=== PATIENT | female | born 1945 | race Caucasian/White ===

== ENCOUNTER 2016-09-11 12:03 | Day surgery (SDC) | payer MEDICARE, BC ==
[~2016-09-11 12:03] MED LIST: LIDOCAINE 2% MDV (20MG/ML) 20ML VIAL IV ONE; PROPOFOL 10 MG/ML VIAL IV ONE
--- NOTE | 2016-09-15 10:50 | Operative Note ---
DATE OF SURGERY: 09/11/2016 REFERRING PHYSICIAN: Dr. Paula Mcgee PREOPERATIVE DIAGNOSIS: Colon cancer screening. POSTOPERATIVE DIAGNOSES: 1. Rectal polyps x 3 status post cold forcep removal. 2. Chronic diverticulosis. PREPARATION QUALITY: Good. Estimated Blood Loss: Minimal. SPECIMENS: Include rectal polyps x 3. OPERATION: Colonoscopy with cold forcep polypectomy x 3. PROCEDURE: After informed consent was obtained from the patient, she was placed in left lateral decubitus position in the Endoscopy Suite, sedated and monitored by Department of Anesthesia. Digital rectal exam revealed no palpable mass. A well-lubricated [id number] colonoscope was inserted into the rectum and advanced to the cecum. The ileocolonic valve and appendiceal orifice is identified. Preparation quality was good. The ileocecal valve itself was cannulated revealing a normal-appearing distal terminal ileus. The cecum was unremarkable. The ascending colon demonstrated a few small diverticula. No other abnormalities were noted. The transverse colon was unremarkable. The descending colon and sigmoid colon demonstrated scattered small diverticula. No polyps or inflammation was seen. The rectum was unremarkable in forward views and J-turn views, other than 3 diminutive polyps all removed with a cold forceps with minimal bleeding noted. The rectal ampulla was deflated. The endoscope was removed. RECOMMENDATIONS: The patient should resume her medications and diet. I would recommend a high-fiber diet and a fiber supplement such as Citrucel or Benefiber. She will require repeat colonoscopy in 5-10 years pending tissue results. As always, thank you for allowing me to participate in the care of your patient. Craig Bass DO CC: Dr. Paula Mcgee [facility]
== END 2016-09-11 14:26 | disposition home or self-care (01) ==
LOC: HOP 12:03
PROVIDERS: ATTEND Internal Medicine Gastroenterology
DX: Z12.11 Encounter for screening for malignant neoplasm of colon (principal); D12.8 Benign neoplasm of rectum; K62.1 Rectal polyp; I10 Essential (primary) hypertension

== ENCOUNTER 2016-10-05 16:57 | Emergency (ER) | payer MEDICARE, BC ==
[2016-10-05] MEDS ORDERED: IPRATROPIUM/ALBUTEROL (0.5MG/3MG) NEB INH ONE (18:05)
--- NOTE | 2016-10-05 18:09 | Emergency Department Record ---
History of Present Illness - General Chief Complaint: Cough Stated Complaint: CHEST CONGESTION,COUGH Time Seen by Provider: 10/05/16 18:01 Source: Patient Mode of Arrival: Ambulatory Limitations: No limitations - History of Present Illness Initial Comments: 71 yo female presents to ED with a CC of cough and "feeling like my lungs are full". Patient reports similar symptoms with Pneumonia in 1968. Patient denies fever or chills, reports mild nausea without vomiting or change in stools. Patient denies previous heart or lung problems. MD Complaint: Cough Onset/Timin -: Days(s) Severity: Moderate Quality: Aching Consistency: Constant Improves With: Nothing Worsens With: Deep breaths Context: Sick contacts Associated Symptoms: Nausea Treatments Prior to Arrival: None - Related Data Home Medications Medication Instructions Recorded Confirmed Last Taken Amitriptyline HCl [Amitriptyline 50 mg PO DAILY 02/15/14 10/05/16 10/05/16 HCl] Atenolol/Chlorthalidone 1 tab PO DAILY 02/15/14 10/05/16 10/05/16 [Atenolol-Chlorthal 50-25 Tb] Celecoxib [Celebrex] 100 mg PO DAILY 02/15/14 10/05/16 10/05/16 Chlorthalidone [Chlorthalidone] 25 mg PO DAILY 02/15/14 10/05/16 10/05/16 Estradiol [Estrace] 1 mg PO DAILY 02/15/14 10/05/16 10/05/16 Metoprolol Tartrate [Metoprolol 25 mg PO DAILY 02/15/14 10/05/16 10/05/16 Tartrate] Tramadol HCl [Tramadol HCl] 50 mg PO ASDIR 02/15/14 10/05/16 10/05/16 Venlafaxine HCl [Effexor Xr] 75 mg PO DAILY 02/15/14 10/05/16 10/05/16 Previous Rx's Medication Instructions Recorded Ondansetron [Zofran Odt] 4 mg PO QID #12 tab.rapdis 02/10/15 Albuterol Sulfate [Proair Hfa] 1 - 2 puff IH .EVERY 4-6 HOURS PRN 10/05/16 #1 inhaler Moxifloxacin HCl [Avelox] 400 mg PO DAILY #7 tablet 10/05/16 Prednisone [Prednisone 20Mg] 20 mg PO TID #15 tab 10/05/16 Allergies Allergy/AdvReac Type Severity Reaction Status Date / Time ezetimibe [From Zetia] Allergy Severe SHORTNESS Verified 10/05/16 17:36 OF BREATH Macrolide Antibiotics Allergy Severe SHORTNESS Verified 10/05/16 17:36 OF BREATH amoxicillin Allergy Intermediate "MARIN MY Verified 10/05/16 17:36 MUCOUS MEMBRANES" azithromycin [From Zithromax] Allergy Intermediate "marin my Verified 10/05/16 17:36 mucous membranes" Cephalosporins Allergy Intermediate SKIN Verified 10/05/16 17:36 IRRITATION tetracycline Allergy Intermediate "MARIN MY Verified 10/05/16 17:36 MUCOUS MEMBRANES" codeine Allergy Mild HEADACHE Verified 10/05/16 17:36 acetaminophen [From Vicodin] Allergy Unknown PT UNSURE Verified 10/05/16 17:36 OF REACTION hydrocodone bitartrate Allergy Unknown PT UNSURE Verified 10/05/16 17:36 [From Vicodin] OF REACTION oxycodone HCl [From Percocet] Allergy Unknown PT UNSURE Verified 10/05/16 17:36 OF REACTION atorvastatin calcium AdvReac Mild MUSCLE PAIN Verified 10/05/16 17:36 [From Lipitor] gabapentin [From Neurontin] AdvReac Mild lethargic Verified 10/05/16 17:36 diazepam [From Valium] AdvReac Unknown unknown Verified 10/05/16 17:36 fentanyl AdvReac Unknown unknown Verified 10/05/16 17:36 pentazocine lactate AdvReac Unknown unknown Verified 10/05/16 17:36 [From Talwin] propoxyphene napsylate AdvReac Unknown unknown Verified 10/05/16 17:36 [From Darvocet-N] Travel Screening - Travel/Exposure Within Last 30 Days Have you traveled within the last 30 days?: No - Travel/Exposure Within Last Year Have you traveled outside the [place] in the last year?: No - Additonal Travel Details Have you been exposed to anyone with a communicable illness?: No - Travel Symptoms Symptom Screening: None Review of Systems Constitutional: Reports: Malaise. Denies: Chills, Fever, Night sweats Eyes: Denies: Eye discharge, Eye pain ENT: Reports: Congestion. Denies: Ear pain, Epistaxis Respiratory: Reports: Cough, Dyspnea, Wheezes. Denies: Hemoptysis Cardiovascular: Denies: Chest pain, Dyspnea on exertion, Palpitations Endocrine: Reports: Fatigue. Denies: Heat or cold intolerance, Polydipsia, Polyuria Gastrointestinal: Reports: Nausea. Denies: Abdominal pain, Vomiting Genitourinary: Denies: Dysuria, Frequency, Hematuria, Incontinence Musculoskeletal: Denies: Arthralgia, Back pain Skin: Denies: Bruising, Change in color Neurological: Denies: Abnormal gait, Confusion, Headache Psychiatric: Denies: Anxiety Hematological/Lymphatic: Denies: Anemia, Blood Clots Past Medical History - SOCIAL HISTORY Smoking Status: Never smoker Alcohol Use: None Drug Use: None - RESPIRATORY Hx Respiratory Disorders: Yes Hx Pneumonia: Yes (in 20's) Hx Sleep Apnea: Yes (?) Hx of CPAP: No - CARDIOVASCULAR Hx Cardio Disorders: Yes Hx Hypertension: Yes Comment:: high cholesterol-allergy to statins - NEURO Hx Neuro Disorders: Yes Hx Neuropathy: Yes (BLE) Hx Weakness: Yes (RLE > LLE (r/t back sx)) Comment:: R-drop foot r/t back sx uses a cane & walker - GI Hx GI Disorders: Yes Hx Abdominal Pain: Yes (RLQ) Hx Hepatitis/Jaundice: Yes (as a teen unsure what kind) Comment:: "bowel blockage" 2007 & 2008 - Hx Genitourinary Disorders: Yes Hx Kidney Stones: Yes (2004, 2007, 2015) - ENDOCRINE Hx Endocrine Disorders: Yes Hx Diabetes: No Hx Thyroid Disease: Yes (nodules no meds) - MUSCULOSKELETAL Hx Musculoskeletal Disorders: Yes Hx Arthritis: Yes Hx Fibromyalgia: Yes - PSYCH Hx Psych Problems: Yes Hx Anxiety: Yes Hx Depression: Yes - HEMATOLOGY/ONCOLOGY Hx Hematology/Oncology Disorders: No Family Medical History Any Significant Family History?: Yes Hx Cancer: Grandparents Hx Diabetes: Grandparents Hx HTN: Grandparents Physical Exam - General General Appearance: Alert, Oriented x3, Cooperative, Mild distress Limitations: No limitations - Head Head exam: Atraumatic, Normocephalic, Normal inspection Head exam detail: negative: Abrasion, Contusion, Chowdhury's sign, General tenderness, Hematoma, Laceration - Eye Eye exam: Normal appearance. negative: Conjunctival injection, Periorbital swelling, Periorbital tenderness, Scleral icterus - ENT Ear exam: negative: Auricular hematoma, Auricular trauma Nasal Exam: negative: Active bleeding, Discharge, Dried blood, Foreign body, Sinus tenderness Mouth exam: negative: Drooling, Laceration, Muffled voice, Tongue elevation - Neck Neck exam: Normal inspection. negative: Meningismus, Tenderness - Respiratory Respiratory exam: Normal lung sounds bilaterally. negative: Respiratory distress, Rhonchi, Stridor, Wheezes - Cardiovascular Cardiovascular Exam: Regular rate, Normal rhythm, Normal heart sounds - GI/Abdominal GI/Abdominal exam: Soft. negative: Pulsatile mass, Rebound, Rigid, Tenderness - Rectal Rectal exam: Deferred - exam: Deferred - Extremities Extremities exam: Normal inspection. negative: Calf tenderness, Pedal edema, Tenderness - Back Back exam: Denies: CVA tenderness (R), CVA tenderness (L) - Neurological Neurological exam: Alert, Normal gait, Oriented X3 - Psychiatric Psychiatric exam: Normal affect, Normal mood - Skin Skin exam: Normal color. negative: Abrasion Type of lesion: negative: abrasion Course Vital Signs 10/05/16 10/05/16 17:38 18:04 Temperature 98.2 F 98.2 F Pulse Rate 66 66 Respiratory 185 H 18 Rate Blood Pressure 152/95 152/95 Pulse Ox 98 98 - Reevaluation(s) Reevaluation #1: 10/05/16 18:42 Labs reviewed, BNP 1170, otherwise labs are grossly unremarkable for an acute process. CXR: Nothing acute MDM: Labs and CXR reviewed, no evidence for pulmonary vascular congestion or pleural effusions on examinations, will treat symptomatically for her cough/bronchitis symptoms. Medical Decision Making - Lab Data Result diagrams: 10/05/16 18:15 10/05/16 18:15 Disposition Disposition: Discharge Clinical Impression: Bronchitis Disposition: Home, Self-Care Condition: (2) Stable Instructions: Acute Bronchitis (ED) Additional Instructions: Return to ED if your symptoms worsen or if you have any concerns. Zithromax, prednisone, and albuterol as directed. Follow-up with your family doctor in 3-5 days. Prescriptions: Moxifloxacin HCl [Avelox] 400 mg PO DAILY #7 tablet Prednisone [Prednisone 20Mg] 20 mg PO TID #15 tab Albuterol Sulfate [Proair Hfa] 1 - 2 puff IH .EVERY 4-6 HOURS PRN #1 inhaler PRN Reason: Difficulty In Breathing Forms: Patient Portal Access Time of Disposition: 18:47
[2016-10-05 18:20] LABS: HEMATOCRIT 43.4 % (35.0-47.0); MEAN CELL VOLUME 91.2 fl (81-97); MEAN CORPUSCULAR HEMOGLOBIN 29.4 pg (27-33); MEAN CORPUSCULAR HGB CONC 32.3 g/dl (32-36); MEAN PLATELET VOLUME 10.7 fl (7.4-10.4); PLATELET COUNT 161 K/uL (130-400); RED BLOOD COUNT 4.76 M/uL (3.80-5.40); RED CELL DISTRIBUTION WIDTH 12.5 % (11.5-14.5); WHITE BLOOD COUNT W/O DIFF 4.1 K/uL (4.2-12.2)
[2016-10-05 18:31] LABS: ALB/GLOB RATIO 1.3 (1.1-1.8); ANION GAP 10.6 (7-16); BILIRUBIN,TOTAL 0.36 mg/dL (0.2-1.3); CARBON DIOXIDE 30.4 mmol/L (22-30)
--- NOTE | 2016-10-09 14:59 | RADIOLOGY REPORT ---
EXAM: CHEST, TWO VIEWS HISTORY: COUGH AND DIFFICULTY BREATHING. TECHNIQUE: PA and lateral upright views of the chest were obtained. Comparison: 02/15/14 and 01/28/13. FINDINGS: The heart, mediastinum, and pulmonary vasculature are normal. The patient is rotated slightly to the left. This accentuates the right hilar and infrahilar lung markings. There is mild chronic elevation of the right hemidiaphragm. There are no acute infiltrates or effusions. There is no pneumothorax. Degenerative changes are present within the spine. There are no acute osseous abnormalities. IMPRESSION: NO ACUTE CHEST PATHOLOGY. JOB NUMBER: [id number] MTDD
== END 2016-10-05 19:02 | disposition home or self-care (01) ==
LOC: ER 16:57
DX: J20.9 Acute bronchitis, unspecified (principal); R11.0 Nausea
CPT/HCPCS: 71020; 80053; 83880; 85027; 94640; 99283; 99284

== ENCOUNTER 2017-08-23 13:57 | Observation (INO) | payer MEDICARE, BC ==
[2017-08-23] MEDS ORDERED: ONDANSETRON HCL IV 4 MG/2 ML VIAL IV ONE (14:05)
[2017-08-23] MEDS ORDERED: 0.9 % SODIUM CHLORIDE 1,000 ML BAG IV ONE (14:05)
--- NOTE | 2017-08-23 14:12 | Emergency Department Record ---
History of Present Illness - General Chief complaint: Weakness Stated complaint: WEAKNESS Time Seen by Provider: 08/23/17 14:05 Source: Patient, Family Mode of Arrival: Ambulatory Limitations: No limitations - History of Present Illness Initial comments: 71 yo female presents with nausea, poor appetite, weakness, tremors, nausea, vomiting and diarrhea. The onset of the symptoms was Thursday. She developed the nausea, vomiting and loose stools at that time. She reports she has had very little to eat since that time. She has been alone during that time period. She asked her home health aide and family to stay away as to not get them sick. No cough or sore throat. MD Complaint: Generalized weakness -: Days(s) (6) Location: Generalized Severity: Moderate Quality: Aching Consistency: Constant Improves with: None Worsens with: Other (eating) Associated Symptoms: Dark stools, Loss of appetite, Nausea/vomiting - [place] Coma Scale Eye Response: (4) Open spontaneously Motor Response: (6) Obeys commands Verbal Response: (5) Oriented Ronel Total: 15 - Related Data Home Medications Medication Instructions Recorded Confirmed Last Taken Trazodone HCl 50 mg PO QHS 08/23/17 08/23/17 Unknown Previous Rx's Medication Instructions Recorded Ondansetron [Zofran Odt] 4 mg PO QID #12 tab.rapdis 02/10/15 Albuterol Sulfate [Proair Hfa] 1 - 2 puff IH .EVERY 4-6 HOURS PRN 10/05/16 #1 inhaler Prednisone [Prednisone 20Mg] 20 mg PO TID #15 tab 10/05/16 Allergies Allergy/AdvReac Type Severity Reaction Status Date / Time ezetimibe [From Zetia] Allergy Severe SHORTNESS Verified 08/23/17 15:51 OF BREATH Macrolide Antibiotics Allergy Severe SHORTNESS Verified 08/23/17 15:51 OF BREATH amoxicillin Allergy Intermediate "MARIN MY Verified 08/23/17 15:51 MUCOUS MEMBRANES" azithromycin [From Zithromax] Allergy Intermediate "marin my Verified 08/23/17 15:51 mucous membranes" Cephalosporins Allergy Intermediate SKIN Verified 08/23/17 15:51 IRRITATION tetracycline Allergy Intermediate "MARIN MY Verified 08/23/17 15:51 MUCOUS MEMBRANES" codeine Allergy Mild HEADACHE Verified 08/23/17 15:51 acetaminophen [From Vicodin] Allergy Unknown PT UNSURE Verified 08/23/17 15:51 OF REACTION hydrocodone bitartrate Allergy Unknown PT UNSURE Verified 08/23/17 15:51 [From Vicodin] OF REACTION oxycodone HCl [From Percocet] Allergy Unknown PT UNSURE Verified 08/23/17 15:51 OF REACTION atorvastatin calcium AdvReac Mild MUSCLE PAIN Verified 08/23/17 15:51 [From Lipitor] gabapentin [From Neurontin] AdvReac Mild lethargic Verified 08/23/17 15:51 diazepam [From Valium] AdvReac Unknown unknown Verified 08/23/17 15:51 fentanyl AdvReac Unknown unknown Verified 08/23/17 15:51 pentazocine lactate AdvReac Unknown unknown Verified 08/23/17 15:51 [From Talwin] propoxyphene napsylate AdvReac Unknown unknown Verified 08/23/17 15:51 [From Darvocet-N] Review of Systems Constitutional: Reports: Malaise, Weakness. Denies: Chills, Fever Eyes: Denies: Eye discharge, Eye pain, Photophobia, Vision change ENT: Denies: Congestion, Throat pain Respiratory: Denies: Cough, Dyspnea, Hemoptysis, Stridor, Wheezes Cardiovascular: Denies: Chest pain, Palpitations, Syncope Endocrine: Reports: Fatigue. Denies: Polydipsia, Polyuria Gastrointestinal: Reports: Abdominal pain, Diarrhea, Nausea, Vomiting. Denies: Constipation, Hematemesis, Hematochezia, Melena Genitourinary: Denies: Dysuria, Urgency Musculoskeletal: Denies: Arthralgia, Back pain, Joint swelling, Myalgia Skin: Denies: Bruising, Change in color, Lesions, Rash Neurological: Reports: Weakness. Denies: Headache, Numbness, Tingling, Tremors , Vertigo Psychiatric: Denies: Anxiety Hematological/Lymphatic: Denies: Blood Clots, Easy bleeding, Easy bruising, Swollen glands Past Medical History - SOCIAL HISTORY Smoking Status: Never smoker Drug Use: None - RESPIRATORY Hx Respiratory Disorders: Yes Hx Pneumonia: Yes (in 20's) Hx Sleep Apnea: Yes (?) Hx of CPAP: No - CARDIOVASCULAR Hx Cardio Disorders: Yes Hx Hypertension: Yes Comment:: high cholesterol-allergy to statins - NEURO Hx Neuro Disorders: Yes Hx Neuropathy: Yes (BLE) Hx Weakness: Yes (RLE > LLE (r/t back sx)) Comment:: R-drop foot r/t back sx uses a cane & walker - GI Hx GI Disorders: Yes Hx Abdominal Pain: Yes (RLQ) Hx Hepatitis/Jaundice: Yes (as a teen unsure what kind) Comment:: "bowel blockage" 2007 & 2008 - Hx Genitourinary Disorders: Yes Hx Kidney Stones: Yes (2004, 2007, 2015) - ENDOCRINE Hx Endocrine Disorders: Yes Hx Diabetes: No Hx Thyroid Disease: Yes (nodules no meds) - MUSCULOSKELETAL Hx Musculoskeletal Disorders: Yes Hx Arthritis: Yes Hx Fibromyalgia: Yes - PSYCH Hx Psych Problems: Yes Hx Anxiety: Yes Hx Depression: Yes - HEMATOLOGY/ONCOLOGY Hx Hematology/Oncology Disorders: No Family Medical History Hx Cancer: Grandparents Hx Diabetes: Grandparents Hx HTN: Grandparents Physical Exam - General General Appearance: Alert, Oriented x3, Cooperative, No acute distress, Other ( Appears weak) Limitations: No limitations - Head Head exam: Atraumatic, Normocephalic, Normal inspection - Eye Eye exam: Normal appearance, PERRL. negative: Conjunctival injection, Periorbital swelling, Scleral icterus - ENT ENT exam: Normal exam, Mucous membranes dry Ear exam: Normal external inspection Nasal Exam: Normal inspection Mouth exam: Normal external inspection Teeth exam: Normal inspection Throat exam: Normal inspection. negative: Tonsillar erythema, Tonsillar exudate - Neck Neck exam: Normal inspection, Full ROM. negative: Tenderness - Respiratory Respiratory exam: Normal lung sounds bilaterally. negative: Respiratory distress - Cardiovascular Cardiovascular Exam: Regular rate, Normal rhythm, Normal heart sounds - GI/Abdominal GI/Abdominal exam: Soft. negative: Distended, Guarding, Rebound, Rigid, Tenderness - Rectal Rectal exam: Deferred - exam: Deferred - Extremities Extremities exam: Normal inspection, Full ROM, Normal capillary refill. negative: Pedal edema, Tenderness - Back Back exam: Reports: Normal inspection, Full ROM. Denies: CVA tenderness (R), CVA tenderness (L), Muscle spasm, Rash noted, Tenderness - Neurological Neurological exam: Alert, Normal gait, Oriented X3 - Psychiatric Psychiatric exam: Normal affect, Normal mood Course - Reevaluation(s) Reevaluation #1: 08/23/17 16:11 The labs were reviewed No acute changes in the CBC The CMP with increased BUN of 27 with CR of 1.1 The K is 3.3 No acute changes of the LFT's 08/23/17 17:39 The UA was reviewed No acute changes The CT scan of the abdomen was negative for acute process. She has fatty liver , intra renal stones, diverticulosis without diverticulitis, L2L3 degenertive disc disease, degenerative arthritis. Given the dehydration, weakness, nausea, vomiting and diarrhea I recommend admission for supportive treatment until able to tolerate PO I SW Mar Capellan for the admission. Medical Decision Making - Lab Data Result diagrams: 08/23/17 13:49 08/23/17 13:49 Disposition Disposition: Admit Clinical Impression: Dehydration, Vomiting and diarrhea, Weakness, Hypokalemia Abdominal pain Qualifiers: Abdominal location: unspecified location Qualified Code(s): R10.9 - Unspecified abdominal pain Disposition: Still a Patient at [facility] Decision to Admit: Admit from ER Decision to Admit Date: 08/23/17 Decision to Admit Time: 17:43 Condition: (2) Stable Forms: Patient Portal Access Time of Disposition: 17:43 Quality - Quality Measures Quality Measures: N/A - Blood Pressure Screening Does Patient Have Any of the Following: No Blood Pressure Classification: Hypertensive Reading Systolic Measurement: 163 Diastolic Measurement: 111 Screening for High Blood Pressure: < Pre-Hypertensive BP, F/U Documented > [ [id number]] Pre-Hypertensive Follow-up Interventions: Referral to alternative/primary care provider.
[2017-08-23 14:28] LABS: HEMATOCRIT 53.7 % (35.0-47.0); HEMOGLOBIN 17.8 gm/dl (11.6-16.0); MEAN CELL VOLUME 87.6 fl (81-97); MEAN CORPUSCULAR HGB CONC 33.1 g/dl (32-36); MEAN PLATELET VOLUME 10.9 fl (7.4-10.4); PLATELET COUNT 273 K/uL (130-400); RED BLOOD COUNT 6.13 M/uL (3.80-5.40); RED CELL DISTRIBUTION WIDTH 13.1 % (11.5-14.5)
[2017-08-23 14:42] LABS: BILIRUBIN,TOTAL 0.8 mg/dL (0.2-1.0); CREATININE 1.1 mg/dL (0.5-0.9); TOTAL PROTEIN 8.4 g/dL (6.6-8.7)
[2017-08-23 14:47] LABS: ALB/GLOB RATIO 1.3 (1.1-1.8); ALBUMIN 4.8 g/dL (4.0-5.0)
[2017-08-23 14:51] LABS: PLATELET ESTIMATE NORMAL (NORMAL)
[2017-08-23 15:15] LABS: THYROID STIMULATING HORMONE 4.26 uIU/mL (0.270-4.20)
[2017-08-23] MEDS ORDERED: ONDANSETRON HCL IV 4 MG/2 ML VIAL IVP ONE (15:32)
[2017-08-23] MEDS ORDERED: 0.9 % SODIUM CHLORIDE 1000ML 1,000 ML IV ONE (16:27)
[2017-08-23 17:15] LABS: URINE APPEARANCE CLEAR; URINE BILIRUBIN NEGATIVE (NEGATIVE); URINE BLOOD TRACE-I (NEGATIVE); URINE COLOR YELLOW; URINE GLUCOSE (UA) NEGATIVE (NEGATIVE); URINE KETONE 15 mg/dL (NEGATIVE); URINE LEUKOCYTE ESTERASE NEGATIVE (NEGATIVE); URINE NITRITE NEGATIVE (NEGATIVE); URINE PROTEIN NEGATIVE (NEGATIVE); URINE UROBILINOGEN 0.2 E.U./dL (0.20 - 1.00)
[2017-08-23 17:30] LABS: URINE EPITHELIAL CELLS 0 - 2 (FEW); URINE RBC 0 - 2 (NONE SEEN); URINE WBC 0 - 2 (0-2/hpf)
[2017-08-23] MEDS ORDERED: POTASSIUM CHLORIDE/D5-0.9%NACL 20 MEQ/1,000 ML BAG IV ONE (19:43)
[2017-08-23] MEDS ORDERED: ONDANSETRON HCL IV 4 MG/2 ML VIAL IVP PRN (19:43)
[2017-08-23] MEDS ORDERED: TRAZODONE 50 MG TABLET PO SCH (22:00)
[2017-08-23] MEDS ORDERED: AMITRIPTYLINE 25 MG TABLET PO SCH (22:00)
[2017-08-23] MEDS: PREDNISONE 20 MG TAB PO SCH (22:02)
[2017-08-24 06:56] LABS: BASO % 0.6 % (0-6); GRAN % 74.4 % (47-80); HEMATOCRIT 42.1 % (35.0-47.0); HEMOGLOBIN 13.6 gm/dl (11.6-16.0); LYMPH % 19.4 % (16-45); MEAN CELL VOLUME 90.7 fl (81-97); MEAN CORPUSCULAR HEMOGLOBIN 29.3 pg (27-33); MEAN CORPUSCULAR HGB CONC 32.3 g/dl (32-36); MEAN PLATELET VOLUME 10.6 fl (7.4-10.4); MONO % 5.6 % (0-9); PLATELET COUNT 193 K/uL (130-400); RED BLOOD COUNT 4.64 M/uL (3.80-5.40); RED CELL DISTRIBUTION WIDTH 12.8 % (11.5-14.5); WHITE BLOOD COUNT W/O DIFF 3.4 K/uL (4.2-12.2)
[2017-08-24 07:36] LABS: ALB/GLOB RATIO 1.4 (1.1-1.8); ALBUMIN 3.5 g/dL (4.0-5.0); ALKALINE PHOSPHATASE 54 U/L (35-104); ALT/SGPT 24 U/L (<33); AST/SGOT 27 U/L (10.0-35.0); BLOOD UREA NITROGEN 17 mg/dL (8-23); CREATININE 0.9 mg/dL (0.5-0.9); EST GLOMERULAR FILTRATION RATE > 60 mL/min; GLUCOSE,RANDOM 174 mg/dL (74-109); LIPASE 27 U/L (13-60)
--- NOTE | 2017-08-24 07:39 | CT SCAN REPORT ---
EXAM: CT OF THE ABDOMEN AND PELVIS HISTORY: VOMITING AND DIARRHEA. BLOOD IN THE STOOL. TECHNIQUE: CT of the abdomen and pelvis was performed without intravenous or oral contrast. Comparison: CT of the abdomen and pelvis 02/10/15. FINDINGS: Minor scarring at the lung bases. The lung bases otherwise are unremarkable. There are coronary artery calcifications present. There is diffuse fatty infiltration of the liver. No hepatic mass identified. The spleen is unremarkable. No pancreatic mass or inflammatory change. The bile ducts are not dilated. The gallbladder is surgically absent. No adrenal lesion seen. There is no aortic aneurysm. No periaortic mass or adenopathy. Atherosclerotic changes are again seen in the abdominal aorta. Two tiny nonobstructing calculi are seen in the right kidney which are stable. No other renal calculi. No ureteral calculus or hydronephrosis. There are no dilated bowel loops. No pelvic mass, abscess, or adenopathy. No free air or free fluid. There is diverticulosis without CT evidence for diverticulitis. The uterus is surgically absent. Extensive post surgical changes are present in the lumbar spine. These appear similar to the patient's previous examination. There is severe narrowing with some irregularity of the vertebral end plates now identified at the L2-L3 level which has progressed since the previous study. Severe arthritic changes are present in the right hip which are progressed from the previous study with mild arthritic change in the left hip. IMPRESSION: 1. NO ACUTE ABDOMINAL OR PELVIC PROCESS IDENTIFIED. 2. DIVERTICULOSIS WITHOUT CT EVIDENCE FOR DIVERTICULITIS. 3. PRIOR CHOLECYSTECTOMY AND HYSTERECTOMY. 4. DIFFUSE FATTY INFILTRATION OF THE LIVER. 5. POST SURGICAL CHANGES IN THE LUMBAR SPINE. 6. SEVERE NARROWING OF THE DISK SPACE AT L2-L3 WHICH HAS PROGRESSED SINCE THE PREVIOUS STUDY WITH IRREGULARITY OF THE VERTEBRAL END PLATES. THIS MAY JUST REPRESENT WORSENING ARTHRITIC CHANGE. IF THERE IS CLINICAL CONCERN FOR DISKITIS OR INFECTION MRI COULD BE OBTAINED. 7. SEVERE ARTHRITIC CHANGES IN THE RIGHT HIP WHICH ARE PROGRESSED FROM THE PREVIOUS EXAMINATION. JOB NUMBER: [id number] [facility]
[2017-08-24] MEDS: PREDNISONE 20 MG TAB PO SCH (09:59)
[2017-08-24] MEDS ORDERED: ATENOLOL 50 MG TABLET PO SCH (10:00)
[2017-08-24] MEDS ORDERED: ESTRADIOL 1 MG PO SCH (10:00)
[2017-08-24] MEDS ORDERED: PANTOPRAZOLE SODIUM IV 40 MG VIAL IV SCH (10:00)
[2017-08-24] MEDS ORDERED: CHLORTHALIDONE 25 MG TABLET PO SCH (10:00)
--- NOTE | 2017-08-24 11:14 | History & Physical ---
History of Present Illness - Date of Service Date of Service for History & Physical: 08/24/17 - History of Present Illness Admitting Diagnosis: vomting, diarrhea, dehydration History of Present Illness: 71yo female with CC of nausea/vomiting and diarrhea. 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 She presented to ED with nausea, poor appetite, weakness, tremors, nausea, vomiting and diarrhea. The onset of the symptoms was Thursday. She developed the nausea, vomiting and loose stools at that time. She reports she has had very little to eat since that time. She has been alone during that time period. She asked her home health aide and family to stay away as to not get them sick. No cough or sore throat. Her daughter decided to bring her to the ED. While in the ED, patient had BP of 163/111 with HR of 109, she was afebrile. WBC count was normal. She had some electrolyte abnormalities. potassium was low at 3.3, chloride low at 92 AG elevated at 22. BUN and Cr elevated 27/1.1 respectively. Urine was negative for infection but did have trace ketones. She received bolus of NS and BP and HR improved to 134/85 and 86. She received antiemetics and was able to control vomiting. She reported some lower cramping abdominal pain and underwent CT scan which was negative for an acute intraabdominal process. She was admitted for dehydration. 08/24/17- Patient states she is feeling better today. She has had no further episodes of vomiting since arrival. She has felt nauseous at times but says the zofran is helping. She did have 2 loose stools today but says that has slowed down as well compared to earlier this week. She continues to have some mild cramping in the lower abdomen but no other pain. She is tolerating clear liquid diet well. She has been up to the bathroom several times today independently. pcp: Dr. Mcgee Travel Screening - Travel/Exposure Within Last 30 Days Have you traveled within the last 30 days?: No - Travel/Exposure Within Last Year Have you traveled outside the [place] in the last year?: No - Additonal Travel Details Have you been exposed to anyone with a communicable illness?: No - Travel Symptoms Symptom Screening: None Review of Systems Constitutional: Denies: Chills, Fever, Malaise, Weakness Eyes: Denies: Eye discharge, Eye pain, Photophobia, Vision change ENT: Denies: Congestion, Throat pain Respiratory: Denies: Cough, Dyspnea, Hemoptysis, Stridor, Wheezes Cardiovascular: Denies: Chest pain, Palpitations, Syncope Endocrine: Denies: Fatigue, Polydipsia, Polyuria Gastrointestinal: Reports: Abdominal pain, Diarrhea, Nausea, Vomiting. Denies: Constipation, Hematemesis, Hematochezia, Melena Genitourinary: Denies: Dysuria, Urgency Musculoskeletal: Denies: Arthralgia, Back pain, Joint swelling, Myalgia Skin: Denies: Bruising, Change in color, Lesions, Rash Neurological: Denies: Headache, Numbness, Tingling, Tremors, Vertigo, Weakness Psychiatric: Denies: Anxiety Hematological/Lymphatic: Denies: Blood Clots, Easy bleeding, Easy bruising, Swollen glands Past Medical History - SOCIAL HISTORY Smoking Status: Never smoker Alcohol Use: None Drug Use: None - RESPIRATORY Hx Respiratory Disorders: Yes Hx Pneumonia: Yes (in 20's) Hx Sleep Apnea: Yes (?) Hx of CPAP: No - CARDIOVASCULAR Hx Cardio Disorders: Yes Hx Hypertension: Yes Comment:: high cholesterol-allergy to statins - NEURO Hx Neuro Disorders: Yes Hx Neuropathy: Yes (BLE) Hx Weakness: Yes (RLE > LLE (r/t back sx)) Comment:: R-drop foot r/t back sx uses a cane & walker - GI Hx GI Disorders: Yes Hx Abdominal Pain: Yes (RLQ) Hx Hepatitis/Jaundice: Yes (as a teen unsure what kind) Comment:: "bowel blockage" 2007 & 2008 - Hx Genitourinary Disorders: Yes Hx Kidney Stones: Yes (2004, 2007, 2016) - ENDOCRINE Hx Endocrine Disorders: Yes Hx Diabetes: No Hx Thyroid Disease: Yes (nodules no meds) - MUSCULOSKELETAL Hx Musculoskeletal Disorders: Yes Hx Arthritis: Yes Hx Fibromyalgia: Yes - PSYCH Hx Psych Problems: Yes Hx Anxiety: Yes Hx Depression: Yes - HEMATOLOGY/ONCOLOGY Hx Hematology/Oncology Disorders: No Family Medical History Any Significant Family History?: No Hx Cancer: Grandparents Hx Diabetes: Grandparents Hx HTN: Grandparents H&P Meds/Allergies - Allergies Allergies: Allergies Allergy/AdvReac Type Severity Reaction Status Date / Time ezetimibe [From Zetia] Allergy Severe SHORTNESS Verified 08/23/17 15:51 OF BREATH Macrolide Antibiotics Allergy Severe SHORTNESS Verified 08/23/17 15:51 OF BREATH amoxicillin Allergy Intermediate "MARIN MY Verified 08/23/17 15:51 MUCOUS MEMBRANES" azithromycin [From Zithromax] Allergy Intermediate "marin my Verified 08/23/17 15:51 mucous membranes" Cephalosporins Allergy Intermediate SKIN Verified 08/23/17 15:51 IRRITATION tetracycline Allergy Intermediate "MARIN MY Verified 08/23/17 15:51 MUCOUS MEMBRANES" codeine Allergy Mild HEADACHE Verified 08/23/17 15:51 acetaminophen [From Vicodin] Allergy Unknown PT UNSURE Verified 08/23/17 15:51 OF REACTION hydrocodone bitartrate Allergy Unknown PT UNSURE Verified 08/23/17 15:51 [From Vicodin] OF REACTION oxycodone HCl [From Percocet] Allergy Unknown PT UNSURE Verified 08/23/17 15:51 OF REACTION atorvastatin calcium AdvReac Mild MUSCLE PAIN Verified 08/23/17 15:51 [From Lipitor] gabapentin [From Neurontin] AdvReac Mild lethargic Verified 08/23/17 15:51 diazepam [From Valium] AdvReac Unknown unknown Verified 08/23/17 15:51 fentanyl AdvReac Unknown unknown Verified 08/23/17 15:51 pentazocine lactate AdvReac Unknown unknown Verified 08/23/17 15:51 [From Talwin] propoxyphene napsylate AdvReac Unknown unknown Verified 08/23/17 15:51 [From Darvocet-N] - Home Medications Home Medications Medication Instructions Recorded Confirmed Last Taken Trazodone HCl 50 mg PO QHS 08/23/17 08/23/17 Unknown Previous Rx's Medication Instructions Recorded Ondansetron [Zofran Odt] 4 mg PO QID #12 tab.[email or web address] 02/10/15 Albuterol Sulfate [Proair Hfa] 1 - 2 puff IH .EVERY 4-6 HOURS PRN 10/05/16 #1 inhaler Omeprazole 40 mg PO DAILY #30 cap 08/24/17 Ondansetron [Zofran Odt] 4 mg PO Q8H PRN #20 tab.hans 01/08/18 - Active Medications Active Medications: Current Medications Amitriptyline HCl (Elavil) 50 mg PO QHS [facility] Last Admin: 08/23/17 22:02 Dose: 50 mg Atenolol (Tenormin) 50 mg PO DAILY [facility] Last Admin: 08/24/17 09:53 Dose: 50 mg Chlorthalidone (Chlorthalidone) 25 mg PO DAILY [facility] Last Admin: 08/24/17 09:53 Dose: 25 mg Non-Formulary Medication (Estradiol) 1 mg PO DAILY [facility] Last Admin: 08/24/17 10:03 Dose: Not Given Ondansetron HCl (Zofran) 4 mg IVP Q6H PRN PRN Reason: NAUSEA Pantoprazole Sodium (Protonix Iv) 40 mg IV DAILY [facility] Last Admin: 08/24/17 09:59 Dose: 40 mg Prednisone (Prednisone 20mg) 20 mg PO TID [facility] Last Admin: 08/24/17 09:59 Dose: Not Given Trazodone HCl (Desyrel) 50 mg PO QHS [facility] Last Admin: 08/23/17 22:02 Dose: 50 mg Physical Exam - Vital Signs Vital Signs: Vital Signs - Last 24 Hrs Temp Pulse Resp BP Pulse Ox 08/24/17 03:43 98.3 F 79 18 150/63 97 08/23/17 21:00 16 08/23/17 19:45 99.4 F 86 18 154/82 93 L - General General Appearance: Alert, Oriented x3, Cooperative, No acute distress (resting comfortably in bed. daughter at bedside) Limitations: No limitations - Head Head exam: Atraumatic, Normocephalic, Normal inspection - Eye Eye exam: Normal appearance, PERRL. negative: Conjunctival injection, Periorbital swelling, Scleral icterus - ENT ENT exam: Normal exam, Mucous membranes dry Ear exam: Normal external inspection Nasal Exam: Normal inspection Mouth exam: Normal external inspection Teeth exam: Normal inspection Throat exam: Normal inspection. negative: Tonsillar erythema, Tonsillar exudate - Neck Neck exam: Normal inspection, Full ROM. negative: Tenderness - Respiratory Respiratory exam: Normal lung sounds bilaterally. negative: Respiratory distress - Cardiovascular Cardiovascular Exam: Regular rate, Normal rhythm, Normal heart sounds - GI/Abdominal GI/Abdominal exam: Soft. negative: Distended, Guarding, Rebound, Rigid, Tenderness - Rectal Rectal exam: Deferred - exam: Deferred - Extremities Extremities exam: Normal inspection, Full ROM, Normal capillary refill. negative: Pedal edema, Tenderness - Back Back exam: Reports: Normal inspection, Full ROM. Denies: CVA tenderness (R), CVA tenderness (L), Muscle spasm, Rash noted, Tenderness - Neurological Neurological exam: Alert, Normal gait, Oriented X3 - Psychiatric Psychiatric exam: Normal affect, Normal mood Results - Labs Result Diagrams: 08/24/17 06:30 08/24/17 06:30 Labs Last 24 Hours: Laboratory Results - last 24 hr 08/24/17 08/24/17 06:30 06:30 WBC 3.4 L RBC 4.64 Hgb 13.6 Hct 42.1 MCV 90.7 MCH 29.3 MCHC 32.3 RDW 12.8 Plt Count 193 MPV 10.6 H Gran % 74.4 Lymphocytes % 19.4 Monocytes % 5.6 Eosinophils % 0.0 Basophils % 0.6 Sodium 143 Potassium 3.6 Chloride 106 Carbon Dioxide 25.0 Anion Gap 12.0 BUN 17 Creatinine 0.9 Estimated GFR > 60 Random Glucose 174 H Calcium 8.2 L Total Bilirubin 0.40 AST 27 ALT 24 Alkaline Phosphatase 54 Total Protein 6.0 L Albumin 3.5 L Globulin 2.5 Albumin/Globulin Ratio 1.4 Lipase 27 - Imaging and Cardiology CT scan - abdomen Status: Report reviewed (no acute intra abdominal process) VTE H&P Assessment - Risk for VTE Risk for VTE: Yes Risk Level: High Risk Assessment Date: 08/24/17 Risk Assessment Time: 13:00 VTE Orders Placed or Will Be Placed: Yes Plan - Detailed Diagnosis and Plan (1) Vomiting and diarrhea Status: Acute Base Code: R11.10 - VOMITING, UNSPECIFIED; R19.7 - DIARRHEA, UNSPECIFIED Comment: 08/24/17- improved. She has had no further epsiodes of vomiting since arrival. Zofran seemed to be helpful with her nausea. She states the loose stools have decreased in frequency. She denies any bloody or dark stools. UA negative for infection. No recent travel, sick contacts, antibiotic use. Diarrhea onset less than 7 days ago and is improving. Suspect this may be related to viral gastroenteritis. -continue zofran prn -hold celebrex and start protonix 40mg IV daily -vitals q8H -will recheck this afternoon. (2) Dehydration Status: Acute Base Code: E86.0 - DEHYDRATION Comment: 08/24/17- resolved. BUN and Cr improved from 27/1.1 egfr of 52 to 17/0.9 and >60. Blood pressure is 158/91 with HR of 67. she remains afebrile and is tolerating clear fluids. -continue clear liquid diet (3) Electrolyte abnormality Status: Acute Base Code: E87.8 - OTH DISORDERS OF ELECTROLYTE AND FLUID BALANCE, NEC Comment: 08/24/17- resolved. Potassium, chloride back in normal range and AG is down to 12. No further episodes of vomiting and loose stool has slowed down considerably per patient. (4) Full code status Status: Acute Base Code: Z78.9 - OTHER SPECIFIED HEALTH STATUS Comment: 08/24- patient is full code (5) DVT prophylaxis Status: Acute Base Code: [id number] - Comment: 08/24/17- Patient is high risk with age and restricted mobility. Will order lovenox 40mg sq daily if she is not discharged today
[2017-08-24] MEDS ORDERED: VENLAFAXINE ER 37.5 MG CAPSULE PO SCH (11:30)
[2017-08-24] MEDS ORDERED: CELECOXIB 100 MG CAPSULE PO SCH (11:45)
--- NOTE | 2017-08-24 16:34 | Discharge Summary ---
Providers Discharge Summary Date: 08/24/17 Date of admission: 08/23/17 19:24 Expected Date of Discharge: 08/24/17 Attending physician: Ananth Ambrose Primary care physician: PATRICE JOHNSON D.O. Physical Exam - Vital Signs Vital Signs: Vital Signs - Last 24 Hrs Temp Pulse Resp BP Pulse Ox 08/24/17 11:00 97.8 F 67 18 128/70 96 08/24/17 03:43 98.3 F 79 18 150/63 97 08/23/17 21:00 16 08/23/17 19:45 99.4 F 86 18 154/82 93 L - General General Appearance: Alert, Oriented x3, Cooperative, No acute distress Limitations: No limitations - Head Head exam: Atraumatic, Normocephalic, Normal inspection - Eye Eye exam: Normal appearance, PERRL. negative: Conjunctival injection, Periorbital swelling, Scleral icterus - ENT ENT exam: Normal exam, Mucous membranes dry Ear exam: Normal external inspection Nasal Exam: Normal inspection Mouth exam: Normal external inspection Teeth exam: Normal inspection Throat exam: Normal inspection. negative: Tonsillar erythema, Tonsillar exudate - Neck Neck exam: Normal inspection, Full ROM. negative: Tenderness - Respiratory Respiratory exam: Normal lung sounds bilaterally. negative: Respiratory distress - Cardiovascular Cardiovascular Exam: Regular rate, Normal rhythm, Normal heart sounds - GI/Abdominal GI/Abdominal exam: Soft. negative: Distended, Guarding, Rebound, Rigid, Tenderness - Rectal Rectal exam: Deferred - exam: Deferred - Extremities Extremities exam: Normal inspection, Full ROM, Normal capillary refill. negative: Pedal edema, Tenderness - Back Back exam: Reports: Normal inspection, Full ROM. Denies: CVA tenderness (R), CVA tenderness (L), Muscle spasm, Rash noted, Tenderness - Neurological Neurological exam: Alert, Normal gait, Oriented X3 - Psychiatric Psychiatric exam: Normal affect, Normal mood Hospitalization - Hospitalization Admission Diagnosis: vomting, diarrhea, dehydration - Problem List/Discharge Diagnosis (1) Vomiting and diarrhea Status: Acute Base Code: R11.10 - VOMITING, UNSPECIFIED; R19.7 - DIARRHEA, UNSPECIFIED Comment: 08/24/17- improved. She has had no further epsiodes of vomiting since arrival. Zofran seemed to be helpful with her nausea. She states the loose stools have decreased in frequency. She denies any bloody or dark stools. UA negative for infection. No recent travel, sick contacts, antibiotic use. Diarrhea onset less than 7 days ago and is improving. Suspect this may be related to viral gastroenteritis. She continues to tolerate clear liquid diet -will plan to discharge home tonight. Patient's daughter is planning on staying the night with her mother. We have scheduled follow up with pcp, Dr. Johnson on Thursday of this week. -Will have patient hold celebrex and continue ppi with omeprazole 40mg po daily until she her follow up. Expained this is likely not the cause of her symptoms but could certainly be exacerbating. -will send in script for zofran 4mg odt q8H prn nausea -spent >10 minutes discussing advancement of diet. We discussed she should continue clear liquid diet until her nausea completely resolves and then may start to add in some soft, bland foods. She and her daughter voiced understanding -I did also explain that based off her symptoms currently, she likely has viral gastroenteritis, but that if her diarrhea were to continue she may need to have stool study completed to evaluate for bacterial causes of diarrhea. -Follow up with Dr. Johnson Thursday as scheduled -will recheck this afternoon. (2) Dehydration Status: Acute Base Code: E86.0 - DEHYDRATION Comment: 08/24/17- resolved. BUN and Cr improved from 27/1.1 egfr of 52 to 17/0.9 and >60. Blood pressure is 158/91 with HR of 67. she remains afebrile and is tolerating clear fluids. -continue clear liquid diet and advance as tolerating (3) Electrolyte abnormality Status: Acute Base Code: E87.8 - OTH DISORDERS OF ELECTROLYTE AND FLUID BALANCE, NEC Comment: 08/24/17- resolved. Potassium, chloride back in normal range and AG is down to 12. No further episodes of vomiting and loose stool has slowed down considerably per patient. -follow up with Dr. Johnson on Thursday. May need to have CMP repeated at that time (4) Full code status Status: Acute Base Code: Z78.9 - OTHER SPECIFIED HEALTH STATUS Comment: 08/24- patient is full code (5) DVT prophylaxis Status: Acute Base Code: [id number] - Comment: 08/24/17- Patient is high risk with age and restricted mobility. patient did not require prophylactic lovenox due to short, observation stay - Hospitalization Course Disposition: Home, Self-Care Hospital Course: 71yo female with CC of nausea/vomiting and diarrhea. 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 She presented to ED with nausea, poor appetite, weakness, tremors, nausea, vomiting and diarrhea. The onset of the symptoms was Thursday. She developed the nausea, vomiting and loose stools at that time. She reports she has had very little to eat since that time. She has been alone during that time period. She asked her home health aide and family to stay away as to not get them sick. No cough or sore throat. Her daughter decided to bring her to the ED. While in the ED, patient had BP of 163/111 with HR of 109, she was afebrile. WBC count was normal. She had some electrolyte abnormalities. potassium was low at 3.3, chloride low at 92 AG elevated at 22. BUN and Cr elevated 27/1.1 respectively. Urine was negative for infection but did have trace ketones. She received bolus of NS and BP and HR improved to 134/85 and 86. She received antiemetics and was able to control vomiting. She reported some lower cramping abdominal pain and underwent CT scan which was negative for an acute intraabdominal process. She was admitted for dehydration. 08/24/17- Patient states she is feeling better today. She has had no further episodes of vomiting since arrival. She has felt nauseous at times but says the zofran is helping. She did have 2 loose stools today but says that has slowed down as well compared to earlier this week. She continues to have some mild cramping in the lower abdomen but no other pain. She is tolerating clear liquid diet well. She has been up to the bathroom several times today independently. pcp: Dr. Johnson Abnormal Labs: Abnormal Lab Results 08/24/17 08/24/17 Range/Units 06:30 06:30 WBC 3.4 L (4.2-12.2) K/uL MPV 10.6 H (7.4-10.4) fl Random Glucose 174 H (74-109) mg/dL Calcium 8.2 L (8.8-10.2) mg/dL Total Protein 6.0 L (6.6-8.7) g/dL Albumin 3.5 L (4.0-5.0) g/dL Condition at Discharge: (2) Stable Discharge Medications - Discharge Medications Prescriptions: Omeprazole 40 mg PO DAILY #30 cap. Ondansetron [Zofran Odt] 4 mg PO Q8H PRN #20 tab.rapdis PRN Reason: Nausea Home Medications: Ambulatory Orders Amitriptyline HCl 50 mg PO DAILY 02/15/14 [Last Taken 08/18/17] Atenolol/Chlorthalidone [Atenolol-Chlorthalidone 50-25] 1 tab PO DAILY 02/15/14 [Last Taken 08/18/17] Celecoxib [Celebrex] 100 mg PO DAILY 02/15/14 [Last Taken 08/18/17] Estradiol [Estrace] 1 mg PO DAILY 02/15/14 [Last Taken 08/18/17] Venlafaxine HCl [Effexor Xr] 75 mg PO DAILY 02/15/14 [Last Taken 08/18/17] Ondansetron [Zofran Odt] 4 mg PO QID #12 tab.rapdis 02/10/15 [Last Taken ] Albuterol Sulfate [Proair Hfa] 1 - 2 puff IH .EVERY 4-6 HOURS PRN #1 inhaler [Last Taken 08/18/17] Trazodone HCl 50 mg PO QHS 08/23/17 [Last Taken Unknown] Omeprazole 40 mg PO DAILY #30 08/24/17 [Last Taken Unknown] Ondansetron [Zofran Odt] 4 mg PO Q8H PRN #20 tab.rapdis 08/24/17 [Last Taken Unknown] Discharge Plan - Discharge Instructions Activity at Discharge: Resume Usual Activities As Tolerated Diet at Discharge: Advance to Usual Diet Additional Instructions: Follow up with Dr. Johnson on 08/28/17 at 2:30pm. Please arrive 15 minutes prior to fill out paperwork Continue clear liquids and advance diet as tolerating. May use the zofran 4mg under the tongue every 8 hours as needed for nausea Hold your celebrex until Thursday. Continue prilosec 40mg by mouth until your follow up appointment Please call with any questions or concerns Return to ED for any new or worsening symptoms Quality Measures - Quality Measures Quality Measures: Advance Directives, Documentation of Current Medications in Medical Record, Elder Maltreatment Screen and Follow-Up Plan, Screening for High Blood Pressure and F/U Documented - Current Medications Quality Measure: Measure #130: Documentation of Current Medications Documentation of Current Medications: <Current Medications Documented/Reviewed> [[id number]] - Blood Pressure Screening Quality Measure: Screening for High Blood Pressure and Follow-Up Documented Does Patient Have Any of the Following: Active Dx of HTN Blood Pressure Classification: Hypertensive Reading Systolic Measurement: 163 Diastolic Measurement: 111 Screening for High Blood Pressure: Patient Exclusion, Hx of HTN [[id number]] - Advance Directives Quality Measure: Measure #47: Care Plan Advance Directives Established: No Advance Directives Information Provided To Patient: Declined Advance Directives on File: No Living Will: No Power of Doctor Of Dental Surgery: Yes Power of Doctor Of Dental Surgery Name: MAIRA COLES-DAUGHTER Advance Care Planning: <Care Plan/Decision Maker Documented; Discussed & Documented> [[id number]] - Elder Abuse Suspicion Index Screening: Elder Abuse Suspicion Index Screening Rely on people for bathing, dressing, shopping, banking, etc: No Prevented from getting food, clothes, medication, etc: No Made to feel shamed or threatened by someone: No Forced to sign papers or use money against will: No Feel afraid, touched in ways not wanted or hurt physically: No Poor eye contact, withdrawn, malnourished, cuts or bruises: No Screening Result: Negative result EASI Reference Information: Giles FERRIS, Sirena C, Lai D, Roly Ma.Development and validation of a tool to assist physicians identification of elder abuse: The Elder Abuse Suspicion Index (EASI ). Journal of Elder Abuse and Neglect, 2008; 20 (3): 276-300. - Elder Maltreatment Screen Quality Measures: Elder Maltreatment Screen and Follow-Up Plan Elder Maltreatment Screen: <Negative, No Follow-Up Plan Required> [[id number]]
== END 2017-08-24 20:10 | disposition home or self-care (01) ==
LOC: ER 13:57 → INTOOBSV 19:24 → MEDSURG 19:24
PROVIDERS: ADMIT Internal Medicine; ATTEND Internal Medicine
DX: R11.2 Nausea with vomiting, unspecified (principal); R19.7 Diarrhea, unspecified; E86.0 Dehydration; I10 Essential (primary) hypertension; E78.00 Pure hypercholesterolemia, unspecified; E04.1 Nontoxic single thyroid nodule; R53.1 Weakness
CPT/HCPCS: 99285 ×2; 96360; 96375; 96361; 83690 ×2; 85025; 80053 ×2; 81001; 84443; 85027; 74176; G0378 ×2; J2405 ×2; J7512; 99220; C9113; J3480; J7030

== ENCOUNTER 2018-05-27 13:59 | Emergency (ER) | payer MEDICARE, BC, MEDICAID ==
--- NOTE | 2018-05-27 14:42 | Emergency Department Record ---
History of Present Illness - General Chief complaint: Extremity Problem Stated complaint: WEAK PULSE ON RT FOOT Time Seen by Provider: 05/27/18 14:33 Source: Patient - History of Present Illness Initial comments: The patient states she had spinal surgery about 5 years ago which left her with a right foot drop. Since then she continues having the foot drop, intermittent swelling of her foot on and off, and sometimes sciatica. She states she was at her first visit for physical therapy today when the physical therapist stated that she had lost her pulse in her right DP pulse. She was sent here for evaluation. She denies increase in pain, or increase in pallor of her foot. - Related Data Home Medications Medication Instructions Recorded Confirmed Last Taken Metaxalone [Skelaxin] 1 tab PO DAILY PRN 05/27/18 05/27/18 05/25/18 Previous Rx's Medication Instructions Recorded Albuterol Sulfate [Proair Hfa] 1 - 2 puff IH .EVERY 4-6 HOURS PRN 10/05/16 #1 inhaler Allergies Allergy/AdvReac Type Severity Reaction Status Date / Time ezetimibe [From Zetia] Allergy Severe SHORTNESS Verified 08/23/17 15:51 OF BREATH Macrolide Antibiotics Allergy Severe SHORTNESS Verified 08/23/17 15:51 OF BREATH amoxicillin Allergy Intermediate "MARIN MY Verified 08/23/17 15:51 MUCOUS MEMBRANES" azithromycin [From Zithromax] Allergy Intermediate "marin my Verified 08/23/17 15:51 mucous membranes" Cephalosporins Allergy Intermediate SKIN Verified 08/23/17 15:51 IRRITATION tetracycline Allergy Intermediate "MARIN MY Verified 08/23/17 15:51 MUCOUS MEMBRANES" codeine Allergy Mild HEADACHE Verified 08/23/17 15:51 acetaminophen [From Vicodin] Allergy Unknown PT UNSURE Verified 08/23/17 15:51 OF REACTION hydrocodone bitartrate Allergy Unknown PT UNSURE Verified 08/23/17 15:51 [From Vicodin] OF REACTION oxycodone HCl [From Percocet] Allergy Unknown PT UNSURE Verified 08/23/17 15:51 OF REACTION peanut Allergy HYPERSENSIT Verified 05/27/18 14:48 IVITY atorvastatin calcium AdvReac Mild MUSCLE PAIN Verified 08/23/17 15:51 [From Lipitor] gabapentin [From Neurontin] AdvReac Mild lethargic Verified 08/23/17 15:51 diazepam [From Valium] AdvReac Unknown unknown Verified 08/23/17 15:51 fentanyl AdvReac Unknown unknown Verified 08/23/17 15:51 pentazocine lactate AdvReac Unknown unknown Verified 08/23/17 15:51 [From Talwin] propoxyphene napsylate AdvReac Unknown unknown Verified 08/23/17 15:51 [From Darvocet-N] Review of Systems Reviewed: No additional complaints except as noted below Constitutional: Reports: As per HPI. Denies: Chills, Fever, Malaise, Night sweats, Weakness, Weight change Eyes: Reports: As per HPI. Denies: Eye discharge, Eye pain, Photophobia, Vision change ENT: Reports: As per HPI. Denies: Congestion, Dental pain, Ear pain, Epistaxis , Hearing loss, Throat pain Respiratory: Reports: As per HPI. Denies: Cough, Dyspnea, Hemoptysis, Stridor, Wheezes Cardiovascular: Reports: As per HPI. Denies: Arrhythmia, Chest pain, Dyspnea on exertion, Edema, Murmurs, Orthopnea, Palpitations, Paroxysmal nocturnal dyspnea, Rheumatic Fever, Syncope Endocrine: Reports: As per HPI. Denies: Fatigue, Heat or cold intolerance, Polydipsia, Polyuria Gastrointestinal: Reports: As per HPI. Denies: Abdominal pain, Constipation, Diarrhea, Hematemesis, Hematochezia, Melena, Nausea, Vomiting Genitourinary: Reports: As per HPI. Denies: Abnormal menses, Discharge, Dyspareunia, Dysuria, Frequency, Hematuria, Incontinence, Retention, Urgency Musculoskeletal: Reports: As per HPI. Denies: Arthralgia, Back pain, Gout, Joint swelling, Myalgia, Neck pain Skin: Reports: As per HPI. Denies: Bruising, Change in color, Change in hair/ nails, Lesions, Pruritus, Rash Neurological: Reports: As per HPI. Denies: Abnormal gait, Confusion, Headache, Numbness, Paresthesias, Seizure, Tingling, Tremors, Vertigo, Weakness Psychiatric: Reports: As per HPI. Denies: Anxiety, Auditory hallucinations, Depression, Homicidal thoughts, Suicidal thoughts, Visual hallucinations Hematological/Lymphatic: Reports: As per HPI. Denies: Anemia, Blood Clots, Easy bleeding, Easy bruising, Swollen glands Past Medical History - SOCIAL HISTORY Smoking Status: Never smoker Drug Use: None - RESPIRATORY Hx Respiratory Disorders: Yes Hx Pneumonia: Yes (in 20's) Hx Sleep Apnea: Yes (?) Hx of CPAP: No - CARDIOVASCULAR Hx Cardio Disorders: Yes Hx Hypertension: Yes Comment:: high cholesterol-allergy to statins - NEURO Hx Neuro Disorders: Yes Hx Neuropathy: Yes (BLE) Hx Weakness: Yes (RLE > LLE (r/t back sx)) Comment:: R-drop foot r/t back sx uses a cane & walker - GI Hx GI Disorders: Yes Hx Abdominal Pain: Yes (RLQ) Hx Hepatitis/Jaundice: Yes (as a teen unsure what kind) Comment:: "bowel blockage" 2007 & 2008 - Hx Genitourinary Disorders: Yes Hx Kidney Stones: Yes (2004, 2007, 2015) - ENDOCRINE Hx Endocrine Disorders: Yes Hx Diabetes: No Hx Thyroid Disease: Yes (nodules no meds) - MUSCULOSKELETAL Hx Musculoskeletal Disorders: Yes Hx Arthritis: Yes Hx Fibromyalgia: Yes - PSYCH Hx Psych Problems: Yes Hx Anxiety: Yes Hx Depression: Yes - HEMATOLOGY/ONCOLOGY Hx Hematology/Oncology Disorders: No Family Medical History Hx Cancer: Grandparents Hx Diabetes: Grandparents Hx HTN: Grandparents Physical Exam - General General Appearance: Alert, Oriented x3, Cooperative, No acute distress - Head Head exam: Normal inspection - Eye Eye exam: Normal appearance, PERRL Pupils: Normal accommodation - ENT ENT exam: Normal exam, Mucous membranes moist, Normal external ear exam, Normal orophraynx, TM's normal bilaterally Ear exam: Normal external inspection. negative: External canal tenderness Nasal Exam: Normal inspection. negative: Discharge, Sinus tenderness Mouth exam: Normal external inspection, Tongue normal Teeth exam: Normal inspection. negative: Dental caries Throat exam: Normal inspection. negative: Tonsillar erythema, Tonsillar exudate - Neck Neck exam: Normal inspection, Full ROM. negative: Tenderness - Respiratory Respiratory exam: Normal lung sounds bilaterally. negative: Respiratory distress - Cardiovascular Cardiovascular Exam: Regular rate, Normal rhythm, Normal heart sounds - GI/Abdominal GI/Abdominal exam: Soft, Normal bowel sounds. negative: Tenderness - Rectal Rectal exam: Deferred - exam: Deferred - Extremities Extremities exam: Normal inspection, Full ROM, Normal capillary refill, Pedal edema (dorsal right foot with mild amount of edema wihout erythema or warmth, noncircumferential. Faint DP pulse palpated.). negative: Calf tenderness, Tenderness - Back Back exam: Reports: Normal inspection, Full ROM. Denies: Muscle spasm, Rash noted, Tenderness - Neurological Neurological exam: Alert, Normal gait, Oriented X3, Reflexes normal - Psychiatric Psychiatric exam: Normal affect, Normal mood - Skin Skin exam: Dry, Intact, Normal color, Warm Course - Reevaluation(s) Reevaluation #1: Patient is comfortable. Results discussed, all questions answered. Patient ready for dc home. 05/27/18 18:02 Medical Decision Making - Management Options MDM Management: No Additional Work-up Planned - Data Complexity MDM Data: X-Ray Ordered and/or Reviewed (Arterial dopplers negative for occlusion or significant stenosis. Per radiologist.) Disposition Disposition: Discharge Clinical Impression: Swelling of right foot Disposition: Home, Self-Care Condition: (1) Good Instructions: Leg Edema (ED) Additional Instructions: Continue present meds. Follow up with PCP as needed. Quality - Quality Measures Quality Measures: N/A - Blood Pressure Screening Does Patient Have Any of the Following: No Blood Pressure Classification: Hypertensive Reading Systolic Measurement: 172 Diastolic Measurement: 102 Screening for High Blood Pressure: < First Hypertensive BP, F/U Documented > [ [id number]] First Hypertensive Follow-up Interventions: Follow-up with rescreen GT 1 day and LT 4 weeks.
--- NOTE | 2018-05-30 16:40 | US ARTERIAL DOPPLER REPORT ---
DATE: 05/27/2018. EXAM: ARTERIAL DOPPLER ULTRASOUND OF THE BILATERAL LOWER EXTREMITIES. HISTORY: DECREASED PULSES, REST PAIN, AND CLAUDICATION. TECHNIQUE: Arterial color and spectral Doppler duplex ultrasound of the lower extremities bilaterally. COMPARISON: None. FINDINGS: 3 Right Waveform Left Waveform Common Femoral Artery 93 cm/s Biphasic 93 cm/s Biphasic Profunda Femoral Artery [] cm/s []phasic [] cm/s []phasic Superficial Femoral Artery 82 cm/s Biphasic 96 cm/s Biphasic Mid Superficial Femoral Artery [] cm/s []phasic [] cm/s []phasic Distal Superficial Femoral Artery [] cm/s []phasic [] cm/s []phasic Popliteal Artery 53 cm/s Biphasic 36 cm/s Biphasic Anterior Tibial Artery 27 cm/s Biphasic 41 cm/s Biphasic Posterior Tibial Artery 45 cm/s Biphasic 66 cm/s Biphasic Peroneal Artery 33 cm/s Biphasic 48 cm/s Biphasic Dorsalis Pedis Artery 35 cm/s Biphasic 35 cm/s Biphasic Ankle brachial indices are 1.1 on the right and 1.2 on the left which is normal. IMPRESSION: NO EVIDENCE FOR ARTERIAL OCCLUSION OR SIGNIFICANT STENOSIS IN THE LOWER EXTREMITIES BILATERALLY. JOB NUMBER: [id number] [facility]
== END 2018-05-27 18:23 | disposition home or self-care (01) ==
LOC: ER 13:59
DX: R60.0 Localized edema (principal); R09.89 Other specified symptoms and signs involving the circulatory and respiratory systems; I10 Essential (primary) hypertension; Z87.891 Personal history of nicotine dependence
CPT/HCPCS: 93925; 99283